=== PATIENT | female | born 1995 | race Caucasian/White ===

== ENCOUNTER 2023-05-08 09:44 | Inpatient (IN) | payer OTHER ==
[2023-05-08] MEDS ORDERED: Acetaminophen 325 MG Tab PO PRN ×2 (11:16→17:39)
[2023-05-08] MEDS ORDERED: Ondansetron 4 MG/2 ML SDV IVPUSH PRN (11:16)
[2023-05-08] MEDS ORDERED: Calcium Carbonate 500 MG Tab.Chew PO PRN (11:16)
[2023-05-08] MEDS ORDERED: Lidocaine 1% 50 ML MDV INJECT ONE (11:16)
[2023-05-08] MEDS ORDERED: Nalbuphine HCl 10 MG/ 1ML Amp IVPUSH PRN (11:16)
[2023-05-08] MEDS ORDERED: Lactated Ringers 1,000 ML IV SCH (11:30)
[2023-05-08 11:52] LABS: CREATININE,URINE RAND 210.3 mg/dL (30.0-125.0); PROTEIN CREATININE RATIO,URINE 81.8 mg/g (0-149); PROTEIN,URINE RANDOM 17.2 mg/dL (0.0-11.8)
[2023-05-08 11:54] LABS: BASOPHILS ABSOLUTE AUTO 0.1 K/mm3 (0.0-0.2); BASOPHILS PERCENT AUTO 0.3 % (0.0-1.0); EOSINOPHILS PERCENT AUTO 0.1 % (0.0-6.0); HEMATOCRIT 37.8 % (37.0-47.0); HEMOGLOBIN 13.1 gm/dl (12.0-16.0); IMMATURE GRAN ABSOLUTE AUTO 0.34 K/mm3 (0.00-0.05); IMMATURE GRAN PERCENT AUTO 1.9 % (0.0-0.4); LYMPHOCYTES ABSOLUTE AUTO 1.5 K/mm3 (1.0-4.8); LYMPHOCYTES PERCENT AUTO 8.1 % (24.0-44.0); MEAN CORPUSCULAR HEMOGLOBIN 28.9 pg (28.0-32.0); MEAN CORPUSCULAR HGB CONC 34.7 g/dl (32.0-36.0); MEAN CORPUSCULAR VOLUME 83.4 fl (83.0-99.0); MEAN PLATELET VOLUME 11.7 fl (9.4-12.3); MONOCYTES ABSOLUTE AUTO 0.9 K/mm3 (0.0-0.8); MONOCYTES PERCENT AUTO 4.9 % (0.0-8.0); NEUTROPHILS ABSOLUTE AUTO 15.2 K/mm3 (1.8-7.7); NEUTROPHILS PERCENT AUTO 84.7 % (41.0-71.0); PLATELET COUNT,PLT 224 K/mm3 (150-400); RED BLOOD CELL COUNT 4.53 M/mm3 (4.10-5.30); WHITE BLOOD CELL COUNT,WBC 17.99 K/mm3 (3.9-11.3)
[2023-05-08 12:13] LABS: CREATININE 0.8 mg/dL (0.55-1.02); EST CRCL DRUG DOSING (CG) 92.53 mL/min; URIC ACID 5.1 mg/dL (2.6-6.0)
[2023-05-08] MEDS ORDERED: Oxytocin 10 Units/1 ML SDV IM ONE (13:18)
[2023-05-08] MEDS ORDERED: Oxytocin/Lactated Ringers 30 UNIT/500 ML BAG IV SCH (13:30)
[2023-05-08] MEDS ORDERED: Tranexamic Acid 1,000 MG/10 ML Vial ONE (14:10)
[2023-05-08] MEDS ORDERED: Benzocaine/Menthol 20%-0.5% Spray 78 GM Cannister TOP PRN (17:39)
[2023-05-08] MEDS ORDERED: Witch Hazel Medicated Pads 40/Jar TOP PRN (17:39)
[2023-05-08] MEDS ORDERED: Ibuprofen 600 MG Tab PO PRN (17:39)
== END 2023-05-09 17:30 | disposition home or self-care (01) | DRG 807 ==
LOC: JD.OBCHECK 09:44 → JD.OB 09:48 → JD.OBCHECK 11:16 → JD.OB 11:40 → OBSVTOIN 16:06 → JD.OB 16:07
PROVIDERS: ADMIT Obstetrics & Gynecology; ATTEND Obstetrics & Gynecology
PROC: 10E0XZZ Delivery of Products of Conception, External Approach (ICD-10-PCS; principal; 2023-05-08)
DX: O48.0 Post-term pregnancy (principal); Z37.0 Single live birth; O13.4 Gestational [pregnancy-induced] hypertension without significant proteinuria, complicating childbirth; O77.0 Labor and delivery complicated by meconium in amniotic fluid; Z3A.41 41 weeks gestation of pregnancy
CPT/HCPCS: 36415; 59025; 59409; 82565; 82570; 83615; 84156; 84450; 84460; 84520; 84550; 85025; 86592; 86850; 86900; 86901